=== PATIENT | male | born 1955 | race American Indian/Alaskan Native ===

== ENCOUNTER 2022-06-06 14:15 | Emergency (ER) | payer MEDICARE, OTHER ==
[2022-06-06 15:43] VITALS: BP 144/85
[2022-06-06] MEDS ORDERED: MORPHINE 2 MG/1 ML INJ IM ONE (17:58)
[2022-06-06] MEDS ORDERED: LORazepam 1 MG TAB PO ONE (17:58)
--- NOTE | 2022-06-06 18:04 | Emergency Department Report ---
<EYAL CABRERA - Last Filed: 06/06/22 18:01> ED Male HPI - General Chief complaint: Urogenital-Male Stated complaint: CANT URINATE Time Seen by Provider: 06/06/22 16:12 Source: patient Mode of arrival: Ambulatory Limitations: No Limitations - History of Present Illness Initial comments: Mr. Hernandez is a 67-year-old F [place] male with a known history of BPH currently taking Flomax in the care of of urology. Had a left procedure done a few months ago and now having some returning issues of postvoid dribbling and urinary hesitancy this has been fluctuating and increasingly worsening fashion over the last 2 weeks and today has been unable to urinate for the last 3 to 4 hours prior to arrival resulting in an intense amount of pressure and discomfort. Reports no fever, chills, sweats no nausea, no vomiting, no hemoptysis no hematemesis -: Gradual Severity: moderate, severe Quality: dull (Pressure) Consistency: constant urinary retention - Related Data Home Medications Medication Instructions Recorded Confirmed Last Taken Atenolol/Chlorthalidone 100 mg PO DAILY 07/29/15 08/01/15 08/01/15 AtorvaSTATin 10 mg PO DAILY 07/29/15 08/01/15 07/31/15 Ferrous Gluconate 1 tab PO DAILY 07/29/15 08/01/15 07/31/15 NexIUM 20 mg PO DAILY 07/29/15 08/01/15 07/31/15 Allergies Allergy/AdvReac Type Severity Reaction Status Date / Time codeine Allergy Nausea Verified 07/29/15 10:03 ED Review of Systems Comment: All other systems reviewed and negative ED Past Medical Hx - Past Medical History Hx Hypertension: Yes (High cholestrol) Hx GERD: Yes Hx Asthma: No Hx COPD: No Hx HIV: No - Social History Smoking Status: Never Smoker - Medications Home Medications: Home Medications Medication Instructions Recorded Confirmed Last Taken Type Atenolol/Chlorthalidone 100 mg PO DAILY 07/29/15 08/01/15 08/01/15 History AtorvaSTATin 10 mg PO DAILY 07/29/15 08/01/15 07/31/15 History Ferrous Gluconate 1 tab PO DAILY 07/29/15 08/01/15 07/31/15 History NexIUM 20 mg PO DAILY 07/29/15 08/01/15 07/31/15 History ED Physical Exam - General Limitations: No Limitations General appearance: alert, in no apparent distress - Head Head exam: Present: atraumatic, normocephalic - Eye Eye exam: Present: normal appearance, PERRL - ENT ENT exam: Present: mucous membranes moist - Neck Neck exam: Present: normal inspection - Respiratory Respiratory exam: Present: normal lung sounds bilaterally. Absent: respiratory distress - Cardiovascular Cardiovascular Exam: Present: regular rate, normal rhythm. Absent: systolic murmur, diastolic murmur, rubs, gallop - GI/Abdominal GI/Abdominal exam: Present: soft, tenderness (Tenderness to the suprapubic region appears to have a distended bladder. No CVA tenderness is noted), normal bowel sounds - Rectal Rectal exam: Present: deferred - Extremities Exam Extremities exam: Present: normal inspection - Back Exam Back exam: Present: normal inspection - Neurological Exam Neurological exam: Present: alert, oriented X3 - Psychiatric Psychiatric exam: Present: normal affect, normal mood - Skin Skin exam: Present: warm, dry, intact, normal color. Absent: rash ED Course - Reevaluation(s) Reevaluation #1: 06/06/22 18:01 Bladder scan obtained revealed 910 mL at 4:03 PM Reevaluation #2: 06/06/22 18:01 There is an attempted daily in conjunction with the normal Garcia catheter was unsuccessful - Consultations Consultation #1: 06/06/22 18:03 Case was discussed with attending who will attempt placement of the Garcia catheter or advance urinary catheter device see her addendum for more detail ED Disposition Clinical Impression: Urinary retention Disposition: 07 LEFT AGAINST MEDICAL ADVICE Condition: Stable Referrals: ASH PRAKASH MD [Primary Care Provider] - 3-5 Days <SONALI TOBAR - Last Filed: 06/11/22 00:00> ED Review of Systems ROS: Stated complaint: CANT URINATE Other details as noted in HPI ED Course Vital Signs 06/06/22 15:38 Temperature 98.2 F Pulse Rate 77 Blood Pressure 144/85 [Right] O2 Sat by Pulse 98 Oximetry - Reevaluation(s) Reevaluation #3: 06/06/22 20:24 I attempted to put a Garcia catheter in 4 times (3 coud catheters and 1 straight cath) without success. I called [facility], who the patient has an appointment with in the morning, but they do not have a doctor who can see the patient, ta. I attempted to get the patient transferred to [place], and [place], but everyone is on diversion. I did speak to a urologist who recommended to aspirate the bladder with an Angiocath if the patient allowed, but the patient had signed out AGAINST MEDICAL ADVICE prior to me posing this as a possible solution. ED Medical Decision Making - Lab Data Result diagrams: 06/06/22 18:39 06/06/22 18:39 Critical care attestation.: If time is entered above; I have spent that time in minutes in the direct care of this critically ill patient, excluding procedure time. ED Disposition Is pt being admited?: No Does the pt Need Aspirin: No
[2022-06-06 18:56] LABS: Basophils % (Auto) 0.2 % (0.0-1.8); Eosinophils % (Auto) 0.1 % (0.0-4.3); Hematocrit 37.3 % (35.5-45.6); Hemoglobin 12.6 gm/dl (11.8-15.2); Lymphocytes # (Auto) 0.6 K/mm3 (1.2-5.4); Lymphocytes % (Auto) 17.6 % (13.4-35.0); Mean Corpuscular HGB Conc 34 % (32-34); Mean Corpuscular Volume 90 fl (84-94); Monocytes # (Auto) 0.2 K/mm3 (0.0-0.8); Monocytes % (Auto) 4.5 % (0.0-7.3); Platelet Count 115 K/mm3 (140-440); Red Blood Count 4.16 M/mm3 (3.65-5.03); Red Cell Distribution Width 14.9 % (13.2-15.2)
[2022-06-06] MEDS ORDERED: MORPHINE 2 MG/1 ML INJ IV ONE (19:03)
[2022-06-06 19:13] LABS: BUN/Creatinine Ratio 13; Blood Urea Nitrogen 10 mg/dL (9-20); Calcium 8.8 mg/dL (8.4-10.2); Hemolysis Index 9
== END 2022-06-06 20:13 | disposition left against medical advice (07) ==
LOC: ED 14:15
DX: R39.198 Other difficulties with micturition (principal); Z88.6 Allergy status to analgesic agent; I10 Essential (primary) hypertension
CPT/HCPCS: 36415; 80048; 85025; 96372; 96374; 99283; J2270